=== PATIENT | male | born 1955 | race Caucasian/White ===

== ENCOUNTER 2024-03-02 10:58 | Emergency (ER) | payer OTHER ==
[2024-03-02] MEDS ORDERED: Tetracaine 0.5% PF 4 ML BOT ONE (11:10)
[2024-03-02] MEDS ORDERED: Fluorescein Opthalmic Strip ONE (11:10)
== END 2024-03-02 11:50 | disposition home or self-care (01) ==
LOC: MADERS 10:58
DX: S05.52XA Penetrating wound with foreign body of left eyeball, initial encounter (principal); I25.10 Atherosclerotic heart disease of native coronary artery without angina pectoris; E11.9 Type 2 diabetes mellitus without complications; I10 Essential (primary) hypertension; J44.9 Chronic obstructive pulmonary disease, unspecified; W26.8XXA Contact with other sharp object(s), not elsewhere classified, initial encounter
CPT/HCPCS: 99283